=== PATIENT | female | born 1950 | race Caucasian/White ===

== ENCOUNTER → 2023-11-11 12:39 | Outpatient (CLI) | payer MEDICARE, SELFPAY ==
--- NOTE | 2023-11-11 12:41 | DI.RAD.S_ITS ---
PROCEDURE: FL BARIUM SWALLOW INDICATIONS: Dysphagia, unspecified COMPARISON: None. FINDINGS: Function: There is generally normal esophageal peristalsis with several episodes of moderate tertiary contractions resulting in both delayed transit as well as retrograde flow of ingested oral contrast. Multiple episodes of both elicited and spontaneous gastroesophageal reflux with contrast column extending cephalad to the level of the thoracic inlet. There is normal transit of a calibrated barium tablet through the esophagus into the stomach. Of note, the barium tablet demonstrated transit back into the esophagus during episodes of gastroesophageal reflux. Morphology: Air-contrast images demonstrate normal mucosal morphology. Single contrast views show no esophageal strictures, extrinsic mass effects, or diverticula. There is a moderate sized sliding hiatal hernia. Limited images of the stomach and proximal small bowel demonstrate normal appearance. IMPRESSION: Multiple episodes of both elicited and spontaneous gastroesophageal reflux with contrast column extending cephalad to the level of the thoracic inlet. Several episodes of moderate tertiary contractions resulting in both delayed transit and retrograde flow of ingested oral contrast. Moderate sliding hiatal hernia. Dictated by: Thomas Solano M.D. on 11/11/2023 at 18:39 Approved by: Thomas Solano M.D. on 11/11/2023 at 18:44
== END ==
LOC: RAD 12:40
PROVIDERS: PCP Physician Assistant; Referring Provider Physician Assistant; Visit Provider Physician Assistant
DX: K21.9 Gastro-esophageal reflux disease without esophagitis (principal); K44.9 Diaphragmatic hernia without obstruction or gangrene; R13.10 Dysphagia, unspecified
CPT/HCPCS: 74220